=== PATIENT | female | born 1980 | race Caucasian/White ===

== ENCOUNTER 2018-05-19 15:10 | Inpatient (IN) | payer OTHER ==
[2018-05-19 15:40] LABS: HEMATOCRIT 39.2 % (36.0-47.0); HEMOGLOBIN 13.1 g/dl (12.0-15.5); MEAN CORPUSCULAR HEMOGLOBIN 28.2 pg (27.0-33.0); MEAN CORPUSCULAR HGB CONC 33.4 g/dl (32.0-36.5); MEAN CORPUSCULAR VOLUME 84.3 fl (80.0-96.0); PLATELET COUNT, AUTOMATED 226 10^3/uL (150-450); RED BLOOD COUNT 4.65 10^6/uL (4.00-5.40)
[2018-05-19] MEDS ORDERED: miSOPROStol 25 MCG 1/4 TAB (S0191) As Ordered (16:52)
[2018-05-19] MEDS: miSOPROStol 25 MCG 1/4 TAB (S0191) PV (16:59)
[2018-05-19] MEDS ORDERED: BUTORPHANOL 2 MG/ML INJ (J0595) IV (17:30)
[2018-05-19] MEDS ORDERED: miSOPROStol 50 MCG 1/2 TAB (S0191) PO (17:30)
[2018-05-19] MEDS: LACTATED RINGER'S 1000 ML IV (17:34)
[2018-05-19] MEDS: LR 1,000 ML IV ×2 (18:45→22:14)
[2018-05-19] MEDS: OXYTOCIN DRIP 30 UNITS in APPROPRIATE DILUENT 1 EA IV (22:14)
[2018-05-20] MEDS ORDERED: FENTANYL 2MCG/ML ROPIVACAINE 0.2% IN 0.9% NACL 200ML IVBAG As Ordered ×2 (00:47→00:51)
[2018-05-20] MEDS ORDERED: EPIDURAL/PCA KEYS XX (01:15)
[2018-05-20] MEDS ORDERED: LACTATED RINGER'S 1000 ML IV (01:15)
[2018-05-20] MEDS ORDERED: REFRIGERATOR IV KEYS XX (01:15)
[2018-05-20] MEDS ORDERED: ePHEDrine SULFATE 25 MG/5 ML(5MG/ML) SYRINGE IV (01:15)
[2018-05-20] MEDS ORDERED: NALOXONE INJ 0.4 MG/1 ML VIAL (J2310) IV (01:15)
[2018-05-20] MEDS ORDERED: ONDANSETRON 4MG/2ML VIAL (J2405) IV (01:15)
[2018-05-20] MEDS ORDERED: EPIDURAL COMMENT XX (01:15)
[2018-05-20] MEDS ORDERED: diphenhydrAMINE INJ 50MG/ML VIAL (J1200) IV (01:15)
[2018-05-20] MEDS: FENTANYL/ROPIVACAINE/NACL BAG 200 ML EPIDURAL ×2 (01:15→21:15)
[2018-05-20 04:12] LABS: CORD GAS ABE V -4.2; CORD GAS HCO3 V 22.5 MEQ/L; CORD GAS O2 SAT V 73.8 %; CORD GAS PCO2 V 46.4 mmHg; CORD GAS PH V 7.303 UNITS; CORD GAS PO2 V 31.8 mmHg; CORD GAS SBC V 20.5 MEQ/L; CORD GAS TCO2 V 23.9 MEQ/L
[2018-05-20 04:17] LABS: CORD GAS ABE A -8.6; CORD GAS PCO2 A 67.7 mmHg; CORD GAS PO2 A 10.8 mmHg; CORD GAS TCO2 A 24.1 MEQ/L
[2018-05-20] MEDS: OXYTOCIN DRIP 30 UNITS in APPROPRIATE DILUENT 1 EA IV (04:43)
[2018-05-20] MEDS ORDERED: MEASLES,MUMPS,RUBELLA VACCINE INJ (MMR-II) (90707) SC (04:45)
[2018-05-20] MEDS: miSOPROStol 200 MCG TAB (S0191) PR (04:45)
[2018-05-20] MEDS ORDERED: RHOGAM 300 MCG (1500 IU) INJ (J2790) IM (04:45)
[2018-05-20] MEDS: METHYLERGONOVINE MALEATE 0.2 MG/ML VIAL (J2210) IM (05:34)
[2018-05-20] MEDS: IBUPROFEN 800 MG TAB PO ×2 (05:39→15:08)
[2018-05-20] MEDS: CLINDAMYCIN 900 MG in APPROPRIATE DILUENT 1 EA IV (05:57)
[2018-05-20] MEDS: GENTAMICIN 120 MG in D5W 50 ML IV (06:45)
[2018-05-20] MEDS: LR 1,000 ML IV ×2 (08:37→16:37)
[2018-05-20] MEDS: DOCUSATE SODIUM 100 MG CAP PO (08:53)
[2018-05-20] MEDS: PRENATAL VITAMINS CHEWABLE TABLET PO (08:53)
[2018-05-20] MEDS: ACETAMINOPHEN 500 MG TAB PO ×2 (09:45→17:09)
[2018-05-20] MEDS: METHYLERGONOVINE MALEATE 0.2 MG TAB PO ×2 (11:34→17:08)
[2018-05-20 12:51] LABS: HEMATOCRIT 38.7 % (36.0-47.0); HEMOGLOBIN 12.8 g/dl (12.0-15.5); MEAN CORPUSCULAR HEMOGLOBIN 27.7 pg (27.0-33.0); MEAN CORPUSCULAR HGB CONC 33.1 g/dl (32.0-36.5); MEAN CORPUSCULAR VOLUME 83.8 fl (80.0-96.0); PLATELET COUNT, AUTOMATED 201 10^3/uL (150-450); RED BLOOD COUNT 4.62 10^6/uL (4.00-5.40); RED CELL DISTRIBUTION WIDTH 15.9 % (11.5-14.5); WHITE BLOOD COUNT 20.3 10^3/uL (4.0-10.0)
[2018-05-21] MEDS: IBUPROFEN 800 MG TAB PO ×3 (00:14→16:58)
[2018-05-21] MEDS: METHYLERGONOVINE MALEATE 0.2 MG TAB PO ×2 (00:14→05:18)
[2018-05-21] MEDS: DOCUSATE SODIUM 100 MG CAP PO ×3 (00:14→20:47)
[2018-05-21] MEDS: LR 1,000 ML IV ×3 (00:37→16:37)
[2018-05-21] MEDS: ACETAMINOPHEN 500 MG TAB PO ×2 (05:18→18:48)
[2018-05-21 06:33] LABS: HEMATOCRIT 38.8 % (36.0-47.0); MEAN CORPUSCULAR HEMOGLOBIN 27.5 pg (27.0-33.0); MEAN CORPUSCULAR HGB CONC 33.5 g/dl (32.0-36.5); MEAN CORPUSCULAR VOLUME 82.2 fl (80.0-96.0); PLATELET COUNT, AUTOMATED 202 10^3/uL (150-450); RED BLOOD COUNT 4.72 10^6/uL (4.00-5.40); WHITE BLOOD COUNT 18.8 10^3/uL (4.0-10.0)
[2018-05-21] MEDS: PRENATAL VITAMINS CHEWABLE TABLET PO (08:10)
[2018-05-21] MEDS: DIBUCAINE 1% OINTMENT 30GM TOP (08:18)
[2018-05-21] MEDS: FENTANYL/ROPIVACAINE/NACL BAG 200 ML EPIDURAL (16:58)
[2018-05-22] MEDS: DOCUSATE SODIUM 100 MG CAP PO ×2 (08:05→14:24)
[2018-05-22] MEDS: PRENATAL VITAMINS CHEWABLE TABLET PO (08:05)
[2018-05-22] MEDS: IBUPROFEN 800 MG TAB PO (08:10)
[2018-05-22] MEDS: ACETAMINOPHEN 500 MG TAB PO ×2 (08:10→14:24)
== END 2018-05-22 14:30 | disposition home or self-care (01) | DRG 774 ==
LOC: M LDI 15:10 → M OBS 05-20 13:28
PROVIDERS: Obstetrics & Gynecology
PROC: 3E0P7VZ Introduction of Hormone into Female Reproductive, Via Natural or Artificial Opening (ICD-10-PCS; 2018-05-19)
PROC: 10E0XZZ Delivery of Products of Conception, External Approach (ICD-10-PCS; principal; 2018-05-20)
PROC: 0HQ9XZZ Repair Perineum Skin, External Approach (ICD-10-PCS; 2018-05-20)
DX: O48.0 Post-term pregnancy (principal); O72.0 Third-stage hemorrhage; Z37.0 Single live birth; Z3A.41 41 weeks gestation of pregnancy; Z88.0 Allergy status to penicillin; E05.90 Thyrotoxicosis, unspecified without thyrotoxic crisis or storm; O69.1XX0 Labor and delivery complicated by cord around neck, with compression, not applicable or unspecified; O77.0 Labor and delivery complicated by meconium in amniotic fluid; O70.0 First degree perineal laceration during delivery; O99.284 Endocrine, nutritional and metabolic diseases complicating childbirth

== ENCOUNTER → 2018-07-29 | Outpatient (CLI) | payer OTHER ==
[~2018-07-29] MED LIST: GASTROGRAFIN SOLUTION 30ML (Q9963) As Ordered; ISOVUE-370 76% 100ML VIAL (Q9967) As Ordered
== END ==
LOC: M RAD 09:58
DX: R10.815 Periumbilic abdominal tenderness (principal)
CPT/HCPCS: Q9963

== ENCOUNTER 2019-10-18 16:52 | Emergency (ER) | payer OTHER ==
[~2019-10-18] VITALS: Ht 162.6 cm; Wt 62.7 kg
[~2019-10-18 16:52] MED LIST changes: +COLA100C5 PO; -GASTROGRAFIN SOLUTION 30ML (Q9963) As Ordered; +IBUP-1114 PO; -ISOVUE-370 76% 100ML VIAL (Q9967) As Ordered; +MAPA500T2 PO; +PREN1CAP9 PO; +VITA100067 PO
[2019-10-18] MEDS ORDERED: KEFL500C17 PO (16:57)
[2019-10-18] MEDS ORDERED: MIRE1IUD IU (16:59)
[2019-10-18 18:17] LABS: URINE PREG TEST NEGATIVE (NEGATIVE)
[2019-10-18 19:15] LABS: BASO # 0.1 10^3/uL (0.0-0.2); BASO % 0.8 % (0.0-1.0); EOS # 0.6 10^3/uL (0.0-0.5); HEMATOCRIT 46.6 % (36.0-47.0); HEMOGLOBIN 15.3 g/dl (12.0-15.5); LYMPH % 27.1 % (24.0-44.0); MEAN CORPUSCULAR HEMOGLOBIN 29.4 pg (27.0-33.0); MEAN CORPUSCULAR HGB CONC 32.8 g/dl (32.0-36.5); MEAN CORPUSCULAR VOLUME 89.4 fl (80.0-96.0); MONO # 0.6 10^3/uL (0.0-0.8); MONO % 8.2 % (0.0-5.0); NEUTROPHILS # 4.2 10^3/uL (1.5-8.5); NEUTROPHILS % 55.5 % (36.0-66.0); PLATELET COUNT, AUTOMATED 296 10^3/uL (150-450); RED BLOOD COUNT 5.21 10^6/uL (4.00-5.40); WHITE BLOOD COUNT 7.5 10^3/uL (4.0-10.0)
[2019-10-18 19:50] LABS: ALBUMIN 3.8 GM/DL (3.2-5.2); ALT/SGPT 24 U/L (12-78); BILIRUBIN,TOTAL 0.3 MG/DL (0.2-1.0); BLOOD UREA NITROGEN 11 MG/DL (7-18); CALCIUM LEVEL 10.3 MG/DL (8.5-10.1); CARBON DIOXIDE LEVEL 31 MEQ/L (21-32); CHLORIDE LEVEL 106 MEQ/L (98-107); CREATININE FOR GFR 0.66 MG/DL (0.55-1.30); GLOMERULAR FILTRATION RATE > 60.0 (>60); GLUCOSE, FASTING 128 MG/DL (70-100); POTASSIUM SERUM 4.2 MEQ/L (3.5-5.1); SODIUM LEVEL 144 MEQ/L (136-145); TOTAL PROTEIN 7.8 GM/DL (6.4-8.2)
[2019-10-18] MEDS ORDERED: BACT800T5 PO (20:04)
[2019-10-18] MEDS ORDERED: CLEO300C2 PO (20:12)
[2019-10-18 20:14] VITALS: BP 100/69
[2019-10-21 00:06] LABS: Lyme Disease IgG/IgM Antibodie <0.91 ISR (0.00-0.90); Lyme Disease IgM Ab Quantitati <0.80 index (0.00-0.79)
== END 2019-10-18 20:14 | disposition home or self-care (01) ==
LOC: M ED 16:52
DX: R39.15 Urgency of urination (principal); M25.50 Pain in unspecified joint; R53.83 Other fatigue; T36.1X5A Adverse effect of cephalosporins and other beta-lactam antibiotics, initial encounter; E16.2 Hypoglycemia, unspecified; Z88.0 Allergy status to penicillin; Z79.899 Other long term (current) drug therapy; Z97.5 Presence of (intrauterine) contraceptive device

== ENCOUNTER → 2021-04-04 | Outpatient (CLI) | payer OTHER ==
[~2021-04-04] MED LIST changes: +BACT800T5 PO; +CLEO300C2 PO; +KEFL500C17 PO; +MIRE1IUD IU
--- NOTE | 2021-04-04 13:35 | REP ---
INDICATION: RIGHT ARM PALPABLE LUMP. COMPARISON: None TECHNIQUE: Focused ultrasonography over a palpable area upper inner aspect of the right arm FINDINGS: In the immediate subcutaneous soft tissues there is a smoothly marginated oval-shaped 0.6 x 0.5 x 0.7 cm sized nearly anechoic structure but with low level echoes within it and without tiburcio posterior wall enhancement or increased through transmission. Color Doppler imaging of the area shows no evidence of internal vascular flow. IMPRESSION: Probable complex cyst seen as described above. <Electronically signed by Thiago Conner > 04/04/21 [id number]
--- NOTE | 2021-04-07 08:12 | REP ---
INDICATION: PALPABLE LUMP IN THE RIGHT AXILLARY TAIL; PALPABLE LUMP IN RIGHT AXILLARY RIGHT. COMPARISON: No comparison breast imaging. TECHNIQUE: Bilateral CC and MLO) view(s) were taken. 3D tomography was acquired. Targeted right axillary tail sonography is performed. FINDINGS: Breast parenchyma is heterogeneously dense in a pattern which may inhibit the sensitivity of mammography. Breast parenchyma symmetrically distributed. No mass lesion, adenopathy, spiculation, or architectural distortion is visible mammographically. No worrisome skin changes seen. The Volpara volumetric breast density pattern is C. Targeted right axillary tail sonography: Scanning is performed to the right axilla. Normal subcutaneous fat and fibroglandular background echotexture is seen. No cyst, mass, adenopathy or other abnormality.. IMPRESSION: BIRADS/ACR category 1 negative mammogram. Negative right axillary tail sonography. [facility] risk [facility] for breast cancer is 24.4%. Enhanced screening in the form of annual bilateral breast MRI scanning is warranted. Bilateral breast MRI scanning is recommended annually, beginning 6 months from now. This mammogram was interpreted with the aid of an FDA-approved computer-aided detection system. The patient states that she/he has not had a clinical breast exam in over a year. The patient letter being requested is M2 dense. RECOMMENDATION: Repeat screening mammography recommended 1 year (for women over 40). Screening bilateral breast MRI scanning suggested in 6 months due to elevated lifetime breast cancer risk assessment. Clinical follow-up is recommended regarding the patient's breast symptoms. <Electronically signed by Remigio Celestin > 04/07/21 [id number]
== END ==
LOC: M WHC 10:58
PROVIDERS: ATTEND Obstetrics & Gynecology
DX: N63.31 Unspecified lump in axillary tail of the right breast (principal)
CPT/HCPCS: 76642; 76882; 77066; G0279

== ENCOUNTER → 2021-07-24 | Outpatient (REF) | payer OTHER | LOC: M SFHCWAGY 13:26 | PROVIDERS: ATTEND Surgery | DX: R22.31 Localized swelling, mass and lump, right upper limb (principal) ==

== ENCOUNTER → 2022-01-21 | Outpatient (CLI) | payer OTHER | LOC: M RAD 11:47 | PROVIDERS: ATTEND Family Medicine | DX: H35.9 Unspecified retinal disorder (principal) ==

== ENCOUNTER 2022-06-04 13:47 | Day surgery (SDC) | payer OTHER ==
[~2022-06-04] VITALS: Ht 162.6 cm; Wt 61.2 kg
[~2022-06-04 13:47] MED LIST changes: +ASPI81TA26 PO; +CLOP75TA2 PO; +EPIN0.3I11 SQ; +VITA100093 PO
[2022-06-04] MEDS ORDERED: NS 1,000 ML IV ONE (14:05)
[2022-06-04] MEDS ORDERED: MIDAZOLAM INJ 2MG/2ML VIAL (J2250 PER 1MG) As Ordered ONE ×5 (15:33→16:12)
[2022-06-04] MEDS ORDERED: LIDOCAINE VISCOUS 2% SOLN 15ML UDC As Ordered ONE ×2 (15:42→15:48)
[2022-06-04] MEDS ORDERED: MIDAZOLAM INJ 2MG/2ML VIAL (J2250 PER 1MG) IV ONE ×3 (16:07→16:13)
[2022-06-04 17:06] VITALS: BP 106/67
== END 2022-06-04 17:11 | disposition home or self-care (01) ==
LOC: M OPP 13:47
PROVIDERS: ATTEND Internal Medicine Cardiovascular Disease
DX: Q21.1 Atrial septal defect (principal); H34.11 Central retinal artery occlusion, right eye
CPT/HCPCS: 93312; 93320; 93325; J2250

== ENCOUNTER → 2022-08-20 | Outpatient (CLI) | payer OTHER | LOC: M WHC 08:19 | PROVIDERS: ATTEND Family Medicine | DX: Z12.31 Encounter for screening mammogram for malignant neoplasm of breast (principal); R92.8 Other abnormal and inconclusive findings on diagnostic imaging of breast ==

== ENCOUNTER → 2022-08-21 | Outpatient (CLI) | payer OTHER ==
[~2022-08-21] MED LIST changes: +ISOVUE-370 76% 100ML VIAL As Ordered ONE
== END ==
LOC: M RAD 16:52
PROVIDERS: ATTEND Internal Medicine Cardiovascular Disease
DX: H34.11 Central retinal artery occlusion, right eye (principal); I63.9 Cerebral infarction, unspecified

== ENCOUNTER → 2022-09-09 | Outpatient (CLI) | payer OTHER ==
[~2022-09-09] MED LIST changes: -ISOVUE-370 76% 100ML VIAL As Ordered ONE
== END ==
LOC: M WHC 07:37
PROVIDERS: ATTEND Family Medicine
DX: Z12.31 Encounter for screening mammogram for malignant neoplasm of breast (principal)

== ENCOUNTER 2023-11-19 12:04 | Emergency (ER) | payer OTHER ==
[~2023-11-19] VITALS: Ht 162.6 cm; Wt 63.2 kg
[2023-11-19] MEDS ORDERED: BRIL90TA PO (12:14)
[2023-11-19 14:51] VITALS: BP 112/81; TEMP 98.2; O2SAT 98
== END 2023-11-19 14:57 | disposition home or self-care (01) ==
LOC: M ED 12:04
DX: R51.9 Headache, unspecified (principal); Z79.02 Long term (current) use of antithrombotics/antiplatelets; W01.0XXA Fall on same level from slipping, tripping and stumbling without subsequent striking against object, initial encounter; Y93.21 Activity, ice skating; Z79.82 Long term (current) use of aspirin; Z79.899 Other long term (current) drug therapy; Z79.3 Long term (current) use of hormonal contraceptives

== ENCOUNTER → 2023-12-31 | Outpatient (CLI) | payer OTHER ==
[~2023-12-31] MED LIST changes: +BRIL90TA PO
== END ==
LOC: M WHC 13:32
PROVIDERS: ATTEND Family Medicine
DX: Z12.31 Encounter for screening mammogram for malignant neoplasm of breast (principal)

== ENCOUNTER → 2024-02-04 | Outpatient (CLI) | payer OTHER | LOC: M CARPUL 13:20 | PROVIDERS: ATTEND Physician Assistant | DX: Q21.12 Patent foramen ovale (principal) ==

== ENCOUNTER 2024-05-19 12:29 | Emergency (ER) | payer OTHER ==
[~2024-05-19] VITALS: Ht 162.6 cm; Wt 63.1 kg
[2024-05-19] MEDS ORDERED: BENA25CA4 PO (12:37)
[2024-05-19 13:30] VITALS: BP 106/65; O2SAT 99
[2024-05-19 13:51] VITALS: TEMP 98.2
== END 2024-05-19 13:52 | disposition home or self-care (01) ==
LOC: M ED 12:29
DX: T63.441A Toxic effect of venom of bees, accidental (unintentional), initial encounter (principal); Z88.0 Allergy status to penicillin; Z88.8 Allergy status to other drugs, medicaments and biological substances; Z91.030 Bee allergy status; Z79.899 Other long term (current) drug therapy

== ENCOUNTER 2025-04-05 08:33 | Day surgery (SDC) | payer OTHER ==
[~2025-04-05] VITALS: Ht 162.6 cm; Wt 64.3 kg
[~2025-04-05 08:33] MED LIST changes: +BENA25CA4 PO; +D 50CAP2 PO; +ECOT81TA5 PO; +ELIQ5TAB PO
[2025-04-05] MEDS ORDERED: propofoL 200 MG/20 ML VIAL As Ordered ONE (09:50)
[2025-04-05] MEDS ORDERED: LIDOCAINE 2% 100MG/5ML SDV (FOR ANES.) As Ordered ONE (09:50)
[2025-04-05] MEDS ORDERED: fentaNYL 100 MCG/2 ML INJECTION As Ordered ONE (09:50)
[2025-04-05 11:12] VITALS: TEMP 97.4
[2025-04-05 11:36] VITALS: BP 104/68; O2SAT 100
== END 2025-04-05 11:38 | disposition home or self-care (01) ==
LOC: M OPP 08:33
PROVIDERS: ATTEND Internal Medicine Gastroenterology
DX: K58.1 Irritable bowel syndrome with constipation (principal); D12.5 Benign neoplasm of sigmoid colon; R10.84 Generalized abdominal pain; Q43.8 Other specified congenital malformations of intestine; K31.89 Other diseases of stomach and duodenum; R11.0 Nausea; R12 Heartburn; E04.1 Nontoxic single thyroid nodule; Z86.73 Personal history of transient ischemic attack (TIA), and cerebral infarction without residual deficits; Z79.82 Long term (current) use of aspirin; Z88.0 Allergy status to penicillin; Z88.8 Allergy status to other drugs, medicaments and biological substances; Z91.030 Bee allergy status
CPT/HCPCS: 43239; 45380; 45385; 88305; J3010

== ENCOUNTER 2025-05-29 16:04 | Emergency (ER) | payer OTHER ==
[~2025-05-29] VITALS: Ht 163.8 cm; Wt 65.1 kg
[2025-05-29 16:10] VITALS: BP 111/73; TEMP 97.9; O2SAT 98
== END 2025-05-29 17:43 | disposition home or self-care (01) ==
LOC: M ED 16:04
DX: S60.222A Contusion of left hand, initial encounter (principal); Y92.9 Unspecified place or not applicable; Y93.9 Activity, unspecified; Y99.9 Unspecified external cause status; Z86.73 Personal history of transient ischemic attack (TIA), and cerebral infarction without residual deficits; Z88.0 Allergy status to penicillin; Z88.8 Allergy status to other drugs, medicaments and biological substances; Z91.030 Bee allergy status; Z79.1 Long term (current) use of non-steroidal anti-inflammatories (NSAID); Z79.899 Other long term (current) drug therapy

== ENCOUNTER → 2025-10-02 | Outpatient (CLI) | payer OTHER | LOC: M WHC 07:20 | PROVIDERS: ATTEND Student in an Organized Health Care Education/Training Program | DX: Z12.31 Encounter for screening mammogram for malignant neoplasm of breast (principal) ==